=== PATIENT | female | born 1985 | race Caucasian/White ===

== ENCOUNTER 2019-09-30 04:45 | Inpatient (IN) | payer BC ==
[2019-09-30] VITALS (13 sets, daily range): BP systolic 109–161; BP diastolic 67–88; PULSE 72–100; TEMP 98–98.2
[~2019-09-30] VITALS: Ht 170.2 cm; Wt 96.4 kg
[~2019-09-30 04:45] MED LIST: NKDA; VICODIN 5/5001 UDTAB PO
[2019-09-30] MEDS ORDERED: TIROSINT50 MC1 PO (05:05)
[2019-09-30] MEDS ORDERED: NTHROIDNT65 (05:05)
[2019-09-30 05:38] LABS: BASO % 0.4 % (0.0-2.0); EOS # 0.1 (0.0-0.7); EOS % 0.9 % (0-4.0); GRAN # 5.2 (1.4-6.5); HEMATOCRIT 37.1 % (37.0-47.0); HEMOGLOBIN 12.8 g/dl (12.5-16.0); LYMPH # 2.1 (1.2-3.4); LYMPH % 26.6 % (20.0-51.0); MEAN CELL VOLUME 90 fl (80.0-100.0); MEAN CORPUSCULAR HEMOGLOBIN 31 pg (27.0-31.0); MEAN CORPUSCULAR HGB CONC 35 g/dl (33.0-37.0); MEAN PLATELET VOLUME 9.8 fl (7.4-10.4); MONO # 0.5 (0.1-0.6); PLATELET COUNT 215 K/mm3 (130-400); RED BLOOD COUNT 4.12 M/mm3 (4.10-5.30); REDCELL DISTRIBUTION WIDTH-CV 14.1 % (11.5-14.5)
--- NOTE | 2019-09-30 06:00 | NUR ---
0445- Patient ambulatory to R-5 with . Patient into restroom to change into gown. Patient and oriented to labor room. 0500- EFM and TOCO on and tracing. Patient presents with complaints of contractions since 299. SVE -/-2 with bulgy bag of water by Grant,RN. Patient denies leaking of fluid. Patient states she has had bloody show. IV started by CHRISTINA Lerner. Labs drawn and sent. Patient is refusing IV fluids, antibiotics, and PP pitocin at this time. 0513- See Physician Notification. 0545- SVE /0 by Grant,CHRISTINA. See Physician Notification. 06- at bedside discussing plan of care. SVE /+1 by MD with bulgy bag of fluids. Patient is wanting to rupture spontaneously. 0607- SROM. Large amount of meconium stained fluid. Nursery RN notified. 0610- Patient repositioned to hands-knees for delivery. Patient expresses large amount of soft stool. Patient begins pushing with contractions with MD. 0613- of viable baby boy. Cord clamped and cut by MD. Baby handed off to Nursery RNs, Pamela,RN and Pillo,CHRISTINA. Patient repositioned to semi-fowlers for perineal exam and delivery of placenta. 0615- Report given to Bronson,RN. 0630- Spontaneous delivery of placenta. Fundus massaged to firm by MD. Perineum intact. Pitocin infusing at 333 ml/hr per protocol after large clots expressed after placenta delivery. Pericare provided. Ice pack applied.
--- NOTE | 2019-09-30 14:15 | NUR ---
Pt requesting to leave and will sign infant out AMA. Discharge order for pt received per Dr Garcia by Bronson.
--- NOTE | 2019-09-30 17:10 | NUR ---
Pt discharged and to personal vehicle.
== END 2019-09-30 17:10 | disposition home or self-care (01) | DRG 807 ==
LOC: LDRO 04:45 → LDR 05:21 → OB 09:13
PROVIDERS: Student in an Organized Health Care Education/Training Program; ADMIT Obstetrics & Gynecology
PROC: 10E0XZZ Delivery of Products of Conception, External Approach (ICD-10-PCS; principal; 2019-09-30)
DX: O99.284 Endocrine, nutritional and metabolic diseases complicating childbirth (principal); Z37.0 Single live birth; E03.9 Hypothyroidism, unspecified; O09.43 Supervision of pregnancy with grand multiparity, third trimester; O99.214 Obesity complicating childbirth; O77.0 Labor and delivery complicated by meconium in amniotic fluid; Z3A.41 41 weeks gestation of pregnancy; Z23 Encounter for immunization
CPT/HCPCS: J2590; J7120